=== PATIENT | male | born 1955 | race Caucasian/White ===

== ENCOUNTER → 2020-05-26 09:55 | Outpatient (CLI) | payer MEDICARE, SELFPAY ==
--- NOTE | 2020-05-26 | CA_ITS ---
APPROVED REPORT Bilateral Lower Extremity Venous Study for DVT. Photo Lab Manager: MELL Indications Lower Extremity Pain: Risk Factors HLD, DM Vein Imaging CFV (L): compressive, spontaneous, phasic, augmentation FEM (L): compressive, spontaneous, phasic, augmentation POP (L): compressive, spontaneous, phasic, augmentation PTV (L): compressive, spontaneous, phasic, augmentation GSV (L): compressive, spontaneous, phasic, augmentation Peroneals (L):compressive, spontaneous, phasic, augmentation GAS (L): compressive, spontaneous, phasic, augmentation Findings Non-vascularized cystic structure visualized in the left popliteal fossa measuring 4.2 x 1.6 cm consistent with Brito's cyst. No evidence of DVT or superficial thrombophlebitis in the veins scanned of the left lower extremity. Conclusion Non-vascularized cystic structure visualized in the left popliteal fossa, consistent with Brito's cyst. No evidence of DVT or superficial thrombophlebitis in the veins scanned of the left lower extremity. Critical Notification Critical Value: No Physician Notified Date: 05/26/2020 Time: 10:41 Physician Name: tima Report Read Back Electronically signed by : Jennifer Cavazos, 05/27/2020 16:11:24
== END ==
PROVIDERS: PCP Family Medicine; Visit Provider Family Medicine
DX: M79.605 Pain in left leg (principal); R60.0 Localized edema
CPT/HCPCS: 93971

== ENCOUNTER 2023-08-16 15:04 | Outpatient (CLI) | payer MEDICARE, SELFPAY | END 2023-08-16 23:59 | disposition home or self-care (01) | LOC: RT 15:05 | PROVIDERS: PCP Family Medicine; Visit Provider Internal Medicine | DX: I48.0 Paroxysmal atrial fibrillation (principal); Z86.19 Personal history of other infectious and parasitic diseases; I42.9 Cardiomyopathy, unspecified; R94.31 Abnormal electrocardiogram [ECG] [EKG] | CPT/HCPCS: 93270 ==

== ENCOUNTER 2023-08-21 14:45 | Outpatient (CLI) | payer MEDICARE, SELFPAY ==
--- NOTE | 2023-08-21 14:45 | CA_ITS ---
APPROVED REPORT EXAM: Comprehensive 2D, Doppler, and color-flow Echocardiogram Law [employer] Officer: Hali Deleon CRT Ht: 5 ft 8 in Wt: 189lbs BSA: 1.99 BP: 124/73 mmHg Indications: Abnormal ECG, Atrial Fibrillation 2D Dimensions LA Volume 20.30 mL LA Volume Index 10.00 mL/m2 (M/F) 16-34 M-Mode Dimensions RVDd 2.52 cm (0.9-2.6) LA Diam 2.82 cm (1.9-4.0) LVDd 5.23 cm (3.5-5.7) LVDs 3.83 cm (3.5-5.7) IVSd 1.31 cm (0.6-1.1) PWd 1.14 cm (0.6-1.1) EF (Teich) 51.90% FS 26.80% EDV (Teich) 131.20 mL TAPSE 2.02 (<1.7) ESV (Teich) 63.10 mL LV Diastology E Decel Time 173 (160-240 msec) E/A Ratio 0.60 MED A' 8.90 cm/s LAT A' 10.70 cm/s Aortic Valve AI PHT 443.00 ms AO Peak GR. 4.00 mmHg Mitral Valve MV A Velocity 77.0 (40-130 cm/s) E/A Ratio 0.60 Pulmonary Valve PV Peak Velocity 109.0 (50-150 cm/s) Tricuspid Valve TR P. Velocity 247.00 cm/s RAP Estimate 10.00 mmHg RVSP 34.50 mmHg Left Ventricle The left ventricle is normal size. Left ventricular systolic function is mild to moderately decreased. There is increased LV wall thickness. There is mild to moderate global hypokinesis present. There is severe hypokinesis of the septal, inferoseptal, and anteroseptal LV smalls. Grade 1 diastolic dysfunction is present. LVEF is 40%. Right Ventricle The right ventricle is normal size. The right ventricular systolic function is normal. Atria The left atrium size is normal. The right atrium size is normal. There is no Doppler evidence of interatrial shunt. Aortic Valve The aortic valve is mildly thickened. There is no aortic valvular stenosis. Mild aortic regurgitation. Mitral Valve The mitral valve leaflets are mildly thickened. No evidence of mitral valve stenosis. Trace mitral regurgitation. Tricuspid Valve The tricuspid valve leaflets are thin and pliable. Trace tricuspid regurgitation. There is insufficient TR jet to estimate RVSP. Pulmonic Valve The pulmonary valve is normal in structure. Trace pulmonic regurgitation. Great Vessels The aortic root is normal in size. The ascending aorta is not well-visualized. IVC is normal in size and collapses >50% with inspiration. Pericardium There is a small sized, anterior pericardial effusion. The largest pocket measures 0.5 cm in diastole. No echo indications of tamponade. Other Information Study Quality: Fair Conclusion Mild to moderate reduction in LV systolic function (LVEF 40%). Severe hypokinesis of the septal, inferoseptal, and anteroseptal LV smalls. Mild AI. Small sized, anterior pericardial effusion. The largest pocket measures 0.5 cm in diastole. No echo indications of tamponade. Electronically signed by : Katherine Cowan MD 08/26/2023 21:26:29
== END 2023-08-21 23:59 | disposition home or self-care (01) ==
LOC: RT 14:45
PROVIDERS: PCP Family Medicine; Visit Provider Internal Medicine
DX: Z86.19 Personal history of other infectious and parasitic diseases (principal); I48.0 Paroxysmal atrial fibrillation; R94.31 Abnormal electrocardiogram [ECG] [EKG]; I42.9 Cardiomyopathy, unspecified
CPT/HCPCS: 93306

== ENCOUNTER 2023-09-29 11:16 | Outpatient (CLI) | payer MEDICARE, SELFPAY ==
[2023-09-29 12:07] LABS: Basophils # 0.1 K/mm3 (0-0.2); Basophils % 0.9 % (0.1-2.0); Eosinophils # 0.3 K/mm3 (0.0-0.4); Eosinophils % 3.4 % (0.1-12.0); Hemoglobin 14.7 g/dL (14.1-18.0); Lymphocytes # 1.9 K/mm3 (0.7-4.5); Lymphocytes % 25.1 % (10-50); Mean Corpuscular HGB Conc 32.6 g/dL (31.8-35.4); Mean Corpuscular Hemoglobin 32.5 pg (27.0-31.2); Mean Corpuscular Volume 99.5 fl (80-94); Mean Platelet Volume 7.8 fl (7.4-10.4); Monocytes # 0.5 K/mm3 (0.1-1.0); Monocytes % 6.4 % (1.7-9.3); Neutrophils # 4.9 K/mm3 (1.8-7.8); Neutrophils % 64.1 % (37.0-80.0); Platelet Count 309 K/mm3 (142-424); Red Blood Count 4.52 M/mm3 (4.60-6.20); Red Cell Distribution Width 15.2 % (11.5-17.5); White Blood Count 7.6 K/mm3 (4.8-10.8)
[2023-09-29 12:32] LABS: Alanine Aminotransferase 22 U/L (12-78); Albumin Level 3.9 g/dl (3.5-5.0); Alkaline Phosphatase 87 U/L (38-126); Anion Gap 11.2 mEq/L (5-15); Aspartate Amino Transferase 24 U/L (17-59); Bilirubin,Indirect 0.7 mg/dL (0.0-0.9); Bilirubin,Total 0.7 mg/dl (0.2-1.3); Bilirubin,Unconjugated 0.8 mg/dL (0.0-1.1); Blood Urea Nitrogen 21 mg/dl (9-20); Calcium 9.6 mg/dl (8.4-10.2); Carbon Dioxide 23 mmol/L (22.0-30.0); Chloride 108 mmol/L (98-107); Chol/HDL Ratio 3.7 (1-3.5); Cholesterol 157 mg/dl (140-200); Estimated Glomerular Filt Rate 84 ml/min (>60); GFR (African American) 102 ML/MIN (>60); Glucose 138 mg/dl (74-100); HDL Cholesterol 42 mg/dl (40-60); Magnesium 2.1 mg/dl (1.6-2.3); Potassium 4.2 mmoL/L (3.5-5.1); Sodium 138 mmol/L (136-145); Total Protein,Serum 6.4 g/dl (6.3-8.2); Triglycerides 107 mg/dl (30-150); VLDL Cholesterol 21 mg/dL (0-40)
[2023-09-29 12:42] LABS: Direct LDL Cholesterol 85.53 mg/dL (100-129)
[2023-09-29 13:02] LABS: Thyroid Stimulating Hormone 0.52 uIU/mL (0.465-4.68)
== END 2023-09-29 23:59 | disposition home or self-care (01) ==
LOC: LAB 11:17
PROVIDERS: PCP Family Medicine; Visit Provider Internal Medicine
DX: I42.9 Cardiomyopathy, unspecified (principal); R94.31 Abnormal electrocardiogram [ECG] [EKG]; I48.0 Paroxysmal atrial fibrillation; E11.9 Type 2 diabetes mellitus without complications; Z79.84 Long term (current) use of oral hypoglycemic drugs
CPT/HCPCS: 36415; 80048; 80061; 80076; 83735; 84439; 84443; 85025

== ENCOUNTER 2024-06-10 10:47 | Outpatient (CLI) | payer MEDICARE, SELFPAY ==
--- NOTE | 2024-06-10 10:50 | CA_ITS ---
APPROVED REPORT EXAM: Comprehensive 2D, Doppler, and color-flow Echocardiogram Administrative Representative: Shyla Vargas RT(R) Ht: 5 ft 8 in Wt: 185lbs BSA: 1.98 BP: 126/73 mmHg Indications: CAD, DM, PAF, HFrEF, CM 2D Dimensions Left Atrium 3.06 cm M: 3.0 - 4.0 LVEF (Coleman's) 43.70 % M: 52 - 72 LVOT 2.58 cm (M/F) 1.5-2.5 LV Volume 103.70 mL M: 62 - 150 LV Volume Index 52.4 mL/m2 M: 34 - 74 LA Volume 20.90 mL LA Volume Index 10.56 mL/m2 (M/F) 16-34 EF AP4 47.20 % EF AP2 43.7 % EF BP 43.7 % GL Strain -13.2 % M-Mode Dimensions RVDd 3.64 cm (0.9-2.6) LVDd 5.22 cm (3.5-5.7) Ao Diam 3.75 cm (2.0-3.7) LVDs 4.09 cm (3.5-5.7) IVSd 0.94 cm (0.6-1.1) PWd 0.84 cm (0.6-1.1) EF (Teich) 43.50% FS 21.60% EDV (Teich) 130.70 mL ESV (Teich) 73.80 mL LV Diastology E Decel Time 222 (160-240 msec) E/A Ratio 0.7 MED E' 6.2 (>= 7 cm/sec) E'/MED E' Ratio 7.24 (<= 14) LAT E' 8.1 (>= 10 cm/sec) E/LAT E' Ratio 5.54 (<= 14) Mitral Valve MV E Max Felix. 45.0 (40-130 cm/s) MV A Velocity 66.0 (40-130 cm/s) E/A Ratio 0.68 MV Decel. Time 222 (160-240 ms) Left Ventricle The left ventricle is normal size. The left ventricular systolic function is normal. The left ventricular ejection fraction is within the normal range. There is increased LV wall thickness. There is normal LV segmental wall motion. The left ventricular diastolic function is normal. LVEF is 55%. Right Ventricle The right ventricle is normal size. The right ventricular systolic function is normal. Atria The left atrium size is normal. The right atrium size is normal. There is no Doppler evidence of interatrial shunt. Aortic Valve Aortic valve is mildly thickened. Mild aortic regurgitation. There is no aortic valvular stenosis. Mitral Valve The mitral valve leaflets are mildly thickened. No evidence of mitral valve stenosis. Trace mitral regurgitation. Tricuspid Valve The tricuspid valve leaflets are thin and pliable. Mild tricuspid regurgitation. RVSP 25-30 mmHg. Pulmonic Valve The pulmonary valve is normal in structure. Trace pulmonic regurgitation. Great Vessels The aortic root is normal in size. IVC is normal in size and collapses >50% with inspiration. Pericardium There is no pericardial effusion. Other Information Study Quality: Fair Conclusion Normal biventricular systolic function. Mild AI, mild TR. Electronically signed by : Katherine Cowan MD 06/10/2024 13:44:56
--- OUTSIDE RECORDS SUMMARY | 2024-06-10 10:50 | XMS_ITS ---
Author Organization Unknown TREATMENT PLAN Planned [facility] Start Date Provider Encounter for Check-up [id number] [facility]
== END 2024-06-10 23:59 | disposition home or self-care (01) ==
LOC: RT 10:48
PROVIDERS: PCP Family Medicine; Visit Provider Internal Medicine
DX: I35.1 Nonrheumatic aortic (valve) insufficiency (principal); I36.1 Nonrheumatic tricuspid (valve) insufficiency; I50.20 Unspecified systolic (congestive) heart failure
CPT/HCPCS: 93306

== ENCOUNTER 2024-11-20 13:54 | Outpatient (CLI) | payer MEDICARE, SELFPAY ==
[2024-11-20 14:48] LABS: Hematocrit 42.5 % (42.0-52.0); Hemoglobin 14.2 g/dL (14.1-18.0); Immature Granulocytes % 0.8 %; Mean Corpuscular HGB Conc 33.4 g/dL (31.8-35.4); Mean Corpuscular Hemoglobin 32.3 pg (27.0-31.2); Mean Corpuscular Volume 96.8 fl (80-94); Nucleated Red Blood Cells % 0 %; Platelet Count 270 K/mm3 (142-424); Red Blood Count 4.39 M/mm3 (4.60-6.20); Red Cell Distribution Width-SD 47.4 fL; White Blood Count 7.5 K/mm3 (4.8-10.8)
[2024-11-20 15:17] LABS: Albumin Level 4.3 g/dl (3.5-5.0); Chloride 105 mmol/L (98-107)
[2024-11-20 15:18] LABS: Potassium 4.4 mmoL/L (3.5-5.1); Sodium 137 mmol/L (136-145)
[2024-11-20 15:20] LABS: Alanine Aminotransferase 18 U/L (12-78); Anion Gap 12.4 mEq/L (5-15); Aspartate Amino Transferase 26 U/L (17-59); Bilirubin,Unconjugated 0.7 mg/dL (0.0-1.1); Blood Urea Nitrogen 18 mg/dl (9-20); Carbon Dioxide 24 mmol/L (22.0-30.0); Cholesterol 168 mg/dl (140-200); Creatinine,Serum 1.10 mg/dl (0.66-1.25); Estimated Glomerular Filt Rate 66 ml/min (>60); GFR (African American) 80 ML/MIN (>60); Total Protein,Serum 6.5 g/dl (6.3-8.2); Triglycerides 162 mg/dl (30-150)
[2024-11-20 15:21] LABS: Alkaline Phosphatase 67 U/L (38-126); Bilirubin,Direct 0.1 mg/dl (0.0-0.4); Bilirubin,Indirect 0.8 mg/dL (0.0-0.9); Bilirubin,Total 0.9 mg/dl (0.2-1.3); Calcium 9.5 mg/dl (8.4-10.2); Glucose 143 mg/dl (74-100); HDL Cholesterol 48 mg/dl (40-60)
== END 2024-11-20 23:59 | disposition home or self-care (01) ==
LOC: LAB 13:55
PROVIDERS: PCP Family Medicine; Visit Provider Internal Medicine
DX: I48.0 Paroxysmal atrial fibrillation (principal); I25.10 Atherosclerotic heart disease of native coronary artery without angina pectoris
CPT/HCPCS: 36415; 80048; 80061; 80076; 85025

== ENCOUNTER 2025-02-12 10:12 | Day surgery (SDC) | payer MEDICARE, SELFPAY ==
--- NOTE | 2025-02-06 17:28 | EXP.HP ---
History of Present Illness *Admission Date: 02/12/25 *History of present illness: Mr. Holt is a 69-year-old gentleman who is here for screening colonoscopy secondary to a positive Cologuard test. The examination is deemed medically necessary for screening colonoscopy. The patient has been seen, interviewed and examined prior to the procedure by both myself and the anesthesia provider. [facility] Disclaimer: The information contained in this section may have been updated after the patient was seen, as this information can be updated by other users. Medical History Coronary artery disease Non-ischemic cardiomyopathy Hx of sepsis Abnormal electrocardiogram [ECG] [EKG] PAF (paroxysmal atrial fibrillation) HFrEF (heart failure with reduced ejection fraction) Cardiomyopathy Diabetes Surgical History History of cardiac cath Family History Son Diabetes Social History (Updated 02/12/25 @ 11:13 by Clarita Jimenez CRNA) Smoking Status: Never smoker alcohol intake: current alcohol intake frequency: a few times a month substance use type: unknown current occupational status: retired Travel in the last 8 weeks?: Inside the [place] Have you lived/traveled outside [place] in past 30 days?: No Contact w/someone who lives/traveled outside US past 30 days?: No Exposure to someone with infectious disease in past 14 days?: No Do you have a fever (greater than 100.4 F or 38 C)?: No Have you tested positive for COVID-19?: No Exposed to someone with COVID-19 in past 14 days?: No Do you have a sore throat?: No Do you have a cough?: No Do you have any weakness?: No Do you have any diarrhea?: No Are you experiencing any unusual bleeding?: No Do you have any muscle aches/pain?: No Do you have any abdominal pain?: No Are you experiencing loss of taste or smell?: No Other Medical History Have you received the Pneumonia Vaccine: No Review of Systems Review of Systems Review of systems (narrative): Negative *Cardiovascular Comments: Negative *Gastrointestinal Comments: Negative *Genitourinary Comments: Negative *Musculoskeletal Comments: Negative *Neurologic Comments: Negative Meds Home Medications and Allergies Home Medications ?Medication ?Instructions ?Recorded ?Confirmed ?Type atorvastatin 20 mg tablet 20 mg PO DAILY 08/16/23 02/11/25 History carvedilol 12.5 mg tablet 12.5 mg PO BID 08/16/23 02/11/25 History empagliflozin 25 mg tablet 25 mg PO DAILY 08/16/23 02/11/25 History (Jardiance) metformin 500 mg tablet 500 mg PO BID 08/16/23 02/11/25 History spironolactone 25 mg tablet 12.5 mg (1/2 x 25 mg) PO DAILY #90 01/29/24 02/11/25 Rx tabs lisinopril 2.5 mg tablet 2.5 mg PO DAILY #90 tabs 09/13/24 02/11/25 Rx blood sugar diagnostic (OneTouch #10 ea 11/20/24 02/11/25 History Ultra Test strips) dabigatran etexilate 150 mg capsule 150 mg PO DAILY 02/11/25 02/11/25 History New Prescriptions to Start Prescriptions: Allergies Allergy/AdvReac Type Severity Reaction Status Date / Time No Known Allergies Allergy Verified 02/11/25 12:43 Exam *Routine HEENT Exam Head: Present normocephalic Eye: Present EOMI and PERRL ENT: Present mucous membranes moist *Routine Neck Exam Neck: Present supple *Routine Respiratory Exam Respiratory: Present CTA bilaterally *Routine Cardiovascular Exam Cardiovascular: Present RRR *Routine Abdominal Exam Abdominal: Present soft and normoactive bowel sounds; Absent tenderness *Routine Rectal Exam Rectal:: deferred *Routine Genitalia Exam Genitalia:: deferred *Routine Extremities Exam Extremities: Absent cyanosis, clubbing or edema *Routine Skin Exam Skin: Present warm; Absent rash *Routine Neurological Exam Neurological: Present alert and oriented X3 Assessment and Plan *Assessment and plan (1) Positive colorectal cancer screening using Cologuard test: Status: Acute Category: Medical Code(s): R19.5 - Other fecal abnormalities (2) Screening for colon cancer: Status: Acute Category: Medical Code(s): Z12.11 - Encounter for screening for malignant neoplasm of colon Plan A/P: 1. Positive Cologuard test is the preprocedural diagnosis. The patient will be anesthetized/sedated using MAC sedation. The patient has been seen and examined. Cardiac and lung assessment prior to the examination is stable. Proceed with planned screening colonoscopy.
[2025-02-11 12:43] VITALS: BMI 30.1
--- NOTE | 2025-02-12 07:08 | P.PCN_ITS ---
[facility] Procedure Note Date: 02/12/25 Time: 12:13 Procedure Note:: Colonoscopy Procedure Report: Colonoscopy with cold snare polypectomy Endoscopist: Gaston Mcleod II, MD Referring physician: Jakob Echevarria MD Date of Procedure: February 12, 2025 Equipment: Olympus [id number] adult colonoscope Sedation: MAC sedation Indication: Mr. Holt is a 69-year-old gentleman who is here for screening colonoscopy secondary to a positive Cologuard test. The patient reports no abdominal pain, weight loss, change in his bowel habits or rectal bleeding. He reports no family history of colon cancer. He does have some occasional loose bowel movements. This is his first colonoscopy. The examination is deemed medically necessary for screening colonoscopy. Procedure: Prior to the procedure, a history and physical exam was performed, and patient's medications and allergies were reviewed. The risks, benefits and alternatives of the sedation and procedure were discussed with the patient. All questions were answered and informed consent was obtained. The patient was brought to the procedure room. Patient identification and proposed procedure were verified by the physician and the nurse. The patient was placed in a left lateral decubitus position and the scope was passed under direct vision. Throughout the procedure, the patient's blood pressure, pulse, and oxygen saturations were monitored continuously. The colonoscopy was accomplished without difficulty. The patient tolerated the procedure well. Findings: On digital rectal examination there was normal rectal tone. There were no external hemorrhoids. The prostate was 2+, smooth, soft, symmetric without nodules. The colonoscope was introduced through the anal canal to the rectum and advanced to the cecum. The ileocecal valve and appendiceal orifice were identified. The scope was advanced a short distance into the ileum which appeared grossly normal. The scope was then withdrawn into the colon. The cecum, ascending and transverse colon and mucosa were grossly normal. There were 7 diminutive colon polyps (descending x 2 (4 and 5 mm), sigmoid x 3 (3, 4 and 4 mm) and rectum x 2 (4 and 4 mm)). These were all removed via cold snare polypectomy. There were mildly scattered diverticuli throughout the descending and sigmoid colon (LEFT colon). The rectum itself was normal. Upon retroflexion within the rectum there were grade 1-2 internal hemorrhoids. The preparation was excellent throughout with [place] Preparation Score of 9. The cecal time was 15 minutes. Impression: 1. Diminutive colonic polyps x 7 2. Mild left-sided diverticulosis 3. Grade 1-2 internal hemorrhoids Plan: I will follow-up the polyp histology and recommend repeat screening/surveillance colonoscopy again in 3 to 5 years based upon the pathology. I would encourage psyllium bulking fiber supplementation on a maintenance basis.
[2025-02-12 10:58] VITALS: BP 127/72; PULSE 88; RESP 18; TEMP 36.1; O2SAT 97
[2025-02-12] MEDS: LACTATED RINGERS 1000ML 1,000 ML 50 ML IV (11:04)
[2025-02-12 11:07] LABS: POC Glucose,Bedside 81 gm/dL (70-110)
--- NOTE | 2025-02-12 11:12 | P.PNANES_ITS ---
[facility] Disclaimer: The information contained in this section may have been updated after the patient was seen, as this information can be updated by other users. Medical History Coronary artery disease Non-ischemic cardiomyopathy Hx of sepsis Abnormal electrocardiogram [ECG] [EKG] PAF (paroxysmal atrial fibrillation) HFrEF (heart failure with reduced ejection fraction) Cardiomyopathy Diabetes Surgical History History of cardiac cath Family History Son Diabetes Social History Smoking Status: Never smoker alcohol intake: current alcohol intake frequency: a few times a month substance use type: unknown current occupational status: retired Travel in the last 8 weeks?: Inside the [facility] Anesthesia Checklist Patient Identification Patient Identification: Arm Band and Verbal (Name & ) Structural Data Admitted From: Home Planned Operative Procedure/s: colonscopy Consent for Planned Operative Procedure(s) Verified: Yes Verified Documents: Surgical Consent and History and Physical NPO Status Verified Time NPO: 00:00 Additional verifications Anesthesia Reactions: No Previous Colonoscopy: No Airway Assessment Mallampati Score:: Class II C-Spine Mobility Assessed: Yes TMJ Mobility Assessed: Yes Dentition: Good Dentition Neurological Assessment Level of Consciousness: Awake, Alert and Appropriate Hx Seizures: No Numbness or tingling in extremities: No Anesthesia Plan Anesthesia Risk discussed: Yes Anesthesia Plan: Verified ASA Class: II Anesthesia Type: MAC
[2025-02-12 12:13] VITALS: BP 80/51; PULSE 94; RESP 18; TEMP 36.2; O2SAT 94
[2025-02-12 12:23] VITALS: BP 103/71; PULSE 90; RESP 16; TEMP 36.2; O2SAT 95
[2025-02-12 12:43] VITALS: BP 115/70; PULSE 86; RESP 16; TEMP 36.2; O2SAT 94
== END 2025-02-12 12:43 | disposition home or self-care (01) ==
PROVIDERS: PCP Family Medicine; Visit Provider Internal Medicine Gastroenterology
PROC: 0DJD8ZZ Inspection of Lower Intestinal Tract, Via Natural or Artificial Opening Endoscopic (ICD-10-PCS; CPT 45378; principal; 2025-02-12 12:00)
DX: Z12.11 Encounter for screening for malignant neoplasm of colon (principal); D12.4 Benign neoplasm of descending colon; R19.5 Other fecal abnormalities; K64.1 Second degree hemorrhoids; K57.30 Diverticulosis of large intestine without perforation or abscess without bleeding; K63.5 Polyp of colon
CPT/HCPCS: 45385; 82962; 88305; J2003; J2704; J7120